=== PATIENT | male | born 1935 | race Two or more races ===

== ENCOUNTER 2020-12-11 05:30 | Day surgery (SDC) | payer OTHER ==
[~2020-12-11 05:30] MED LIST: ADULT LOW DOSE81 M1 PO; ATORVASTATIN CA40 MG PO; COZAAR25 MG PO; ISORBIDE PO; LANTUS; SYNJARDY XR 121 EACH PO; TOPROL XL50 M1 PO
== END 2020-12-11 15:45 | disposition home or self-care (01) ==
LOC: CIR.AMB 05:30
PROVIDERS: ATTEND Surgery
DX: K40.30 Unilateral inguinal hernia, with obstruction, without gangrene, not specified as recurrent (principal); Z20.822 Contact with and (suspected) exposure to COVID-19

== ENCOUNTER 2023-03-16 10:56 | Outpatient (CLI) | payer OTHER | END 2023-03-16 11:05 | disposition home or self-care (01) | LOC: SONOGRAMA 10:56 | PROVIDERS: ATTEND Pathology Anatomic Pathology & Clinical Pathology | DX: D36.7 Benign neoplasm of other specified sites (principal) ==